=== PATIENT | male | born 1945 | race African-American/Black ===

== ENCOUNTER 2021-08-10 19:53 | Inpatient (IN) | payer MEDICARE, MEDICAID ==
[~2021-08-10] VITALS: Ht 182.9 cm; Wt 80.8 kg
[~2021-08-10 19:53] MED LIST: HYDR1TAB4 GT
[2021-08-10 21:21] LABS: BASOPHILS % 0.1 % (0.0-2.0); EOSINOPHILS % 0.3 % (0.0-5.0); HEMATOCRIT. 46.2 % (42.0-52.0); HEMOGLOBIN. 15.7 g/dL (14.0-18.0); LYMPHOCYTES % 18.8 % (20.0-50.0); MEAN CORPUSCULAR HEMOGLOBIN 33.1 pg (28.0-32.0); MEAN CORPUSCULAR VOLUME 97.7 fL (80.0-94.0); MEAN PLATELET VOLUME 8.2 fl (7.4-10.4); MONOCYTES % 11.2 % (2.0-8.0); NEUTROPHILS % 69.6 % (40.0-76.0); PLATELET 130 x1000/uL (130-400); RED BLOOD CELL COUNT 4.73 mill/uL (4.7-6.1)
[2021-08-10 21:29] LABS: CHLORIDE 109 mEq/L (98-107)
[2021-08-10 21:33] LABS: ETHANOL BLOOD < 10 mg/dL
[2021-08-10 21:44] LABS: CLARITY URINE CLEAR (CLEAR); COLOR URINE DARK YELLOW (YELLOW); KETONES URINE 2+ (NEGATIVE); LEUKOCYTE ESTERASE URINE NEGATIVE (NEGATIVE); NITRITE URINE NEGATIVE (NEGATIVE); OCCULT BLOOD URINE 1+ (NEGATIVE); PH URINE 5.5 (4.5-8.0); PROTEIN URINE TRACE (NEGATIVE); SPECIFIC GRAVITY URINE 1.059 (1.005-1.030)
[2021-08-10] MEDS ORDERED: IOHEXOL-300 100 ML BOTTLE ONE (21:49)
[2021-08-10 22:02] LABS: *AMPHETAMINES SCREEN URINE NEGATIVE (NEGATIVE); *BARBITURATES SCREEN URINE NEGATIVE (NEGATIVE); *BENZODIAZEPINES SCREEN URINE NEGATIVE (NEGATIVE); *COCAINE SCREEN URINE PRESUMTIVE POSITIVE (NEGATIVE); OPIATES URINE SCREEN NEGATIVE (NEGATIVE)
[2021-08-10 22:04] LABS: CANNABINOID URINE SCREEN NEGATIVE (NEGATIVE); METHADONE URINE SCREEN NEGATIVE (NEGATIVE); PHENCYCLIDINE URINE SCREEN NEGATIVE (NEGATIVE)
[2021-08-10] MEDS ORDERED: SODIUM CHLORIDE 0.9% 1,000 ML IV ONE (22:15)
[2021-08-10 23:51] VITALS: BP 125/84
[2021-08-11] VITALS: BP 125/84
[2021-08-11] MEDS ORDERED: ONDANSETRON HCL 4MG/2ML INJ IV PRN
[2021-08-11] MEDS ORDERED: HYDROCODONE/ACETAMINOPHEN 5/325MG TABLET PO PRN
[2021-08-11] MEDS ORDERED: ACETAMINOPHEN 325MG TABLET PO PRN
[2021-08-11] MEDS ORDERED: DOCUSATE SODIUM 100MG CAPSULE PO PRN
[2021-08-11 04:00] VITALS: BP 170/86
[2021-08-11 06:54] LABS: BASOPHILS % 0.4 % (0.0-2.0); CHLORIDE 113 mEq/L (98-107); EOSINOPHILS % 0.5 % (0.0-5.0); HEMATOCRIT. 45.7 % (42.0-52.0); LYMPHOCYTES % 21.8 % (20.0-50.0); MEAN CORPUSCULAR HEMOGLOBIN 33.4 pg (28.0-32.0); MEAN CORPUSCULAR VOLUME 95.3 fL (80.0-94.0); MEAN PLATELET VOLUME 9.2 fl (7.4-10.4); MONOCYTES % 11.6 % (2.0-8.0); NEUTROPHILS % 65.7 % (40.0-76.0); PLATELET 150 x1000/uL (130-400); RED BLOOD CELL COUNT 4.79 mill/uL (4.7-6.1)
[2021-08-11 07:00] LABS: LDL CHOLESTEROL 130 mg/dL (5-100)
[2021-08-11 07:02] LABS: HDL CHOLESTEROL 58 mg/dL (40-59)
[2021-08-11 08:00] VITALS: BP 174/84
[2021-08-11] MEDS: ASPIRIN 81MG EC TABLET PO SCH (08:50)
[2021-08-11] MEDS: AMLODIPINE 10MG TABLET PO SCH (08:50)
[2021-08-11] MEDS: ENOXAPARIN 40MG/0.4ML SYR SUBCUT SCH (09:20)
[2021-08-11] MEDS: HYDRALAZINE 20MG/ML VIAL IV PRN (09:20)
[2021-08-11] MEDS ORDERED: KETO5DRO80 RIGHTEYE (11:38)
[2021-08-11] MEDS ORDERED: BRIM.2 EACHEYE (11:38)
[2021-08-11] MEDS ORDERED: ACET250T3 PO (11:39)
[2021-08-11] MEDS ORDERED: CIPR2.5D17 RIGHTEYE (11:41)
[2021-08-11] MEDS ORDERED: TIMO5DRO32 LEFTEYE (11:42)
[2021-08-11] MEDS ORDERED: TRAM50TA3 MT (11:42)
[2021-08-11 12:00] VITALS: BP 168/81
[2021-08-11] MEDS: CLONIDINE 0.1MG TABLET PO PRN (14:47)
[2021-08-11] MEDS: DEXT 5%/0.45% NACL 1000ML 1,000 ML IV SCH (14:47)
[2021-08-11 16:07] VITALS: BP 122/77
[2021-08-11 20:00] VITALS: BP 126/82
[2021-08-12] VITALS: BP 107/83
[2021-08-12] MEDS: DEXT 5%/0.45% NACL 1000ML 1,000 ML IV SCH ×2 (02:06→16:34)
[2021-08-12 04:00] VITALS: BP 166/97
[2021-08-12 08:00] VITALS: BP 179/77
[2021-08-12] MEDS: AMLODIPINE 10MG TABLET PO SCH (08:24)
[2021-08-12] MEDS: ASPIRIN 81MG EC TABLET PO SCH (08:24)
[2021-08-12] MEDS: HYDRALAZINE 20MG/ML VIAL IV PRN (08:24)
[2021-08-12] MEDS: ENOXAPARIN 40MG/0.4ML SYR SUBCUT SCH (08:24)
[2021-08-12] MEDS: LOSARTAN POTASSIUM 50 MG TABLET PO SCH (11:07)
[2021-08-12 12:00] VITALS: BP 131/86
[2021-08-12] MEDS: BRIMONIDINE 0.2% OPHTH DROPS 5ML EACHEYE SCH ×2 (13:14→16:34)
[2021-08-12 16:00] VITALS: BP 124/73
[2021-08-12 20:00] VITALS: BP 135/77
[2021-08-12] MEDS: ATORVASTATIN CALCIUM 40MG TABLET PO SCH (21:55)
[2021-08-13] VITALS: BP 125/80
[2021-08-13 04:00] VITALS: BP 189/89
[2021-08-13] MEDS: DEXT 5%/0.45% NACL 1000ML 1,000 ML IV SCH ×2 (06:32→17:53)
[2021-08-13 07:26] LABS: BASOPHILS % 0.2 % (0.0-2.0); EOSINOPHILS % 0.5 % (0.0-5.0); HEMATOCRIT. 42.7 % (42.0-52.0); HEMOGLOBIN. 15.1 g/dL (14.0-18.0); LYMPHOCYTES % 20.4 % (20.0-50.0); MEAN CORPUSCULAR HEMOGLOBIN 33.4 pg (28.0-32.0); MEAN CORPUSCULAR VOLUME 94.6 fL (80.0-94.0); MEAN PLATELET VOLUME 9.2 fl (7.4-10.4); MONOCYTES % 12.2 % (2.0-8.0); NEUTROPHILS % 66.7 % (40.0-76.0); PLATELET 144 x1000/uL (130-400); RED BLOOD CELL COUNT 4.52 mill/uL (4.7-6.1); RED CELL DISTRIBUTION WIDTH 12.6 % (11.6-14.6)
[2021-08-13 07:37] LABS: CHLORIDE 109 mEq/L (98-107)
[2021-08-13 08:00] VITALS: BP 175/93
[2021-08-13] MEDS: ENOXAPARIN 40MG/0.4ML SYR SUBCUT SCH (10:41)
[2021-08-13] MEDS: AMLODIPINE 10MG TABLET PO SCH (10:42)
[2021-08-13] MEDS: LOSARTAN POTASSIUM 50 MG TABLET PO SCH (10:42)
[2021-08-13] MEDS: BRIMONIDINE 0.2% OPHTH DROPS 5ML EACHEYE SCH ×3 (10:42→17:53)
[2021-08-13] MEDS: ASPIRIN 81MG EC TABLET PO SCH (10:42)
[2021-08-13] MEDS ORDERED: POTASSIUM CHLORIDE INJ 40 MEQ in DEXT 5% WATER 250 ML IV SCH (11:00)
[2021-08-13 12:00] VITALS: BP 145/84
[2021-08-13 16:00] VITALS: BP 121/77
[2021-08-13 20:00] VITALS: BP 132/68
[2021-08-13] MEDS ORDERED: NALOXONE HCL 0.4MG/ML VIAL IV PRN (21:30)
[2021-08-13] MEDS: ATORVASTATIN CALCIUM 40MG TABLET PO SCH (21:32)
[2021-08-14] VITALS: BP 136/101
[2021-08-14] MEDS: CLONIDINE 0.1MG TABLET PO PRN (00:31)
[2021-08-14 04:00] VITALS: BP 151/88
[2021-08-14 06:49] LABS: BASOPHILS % 0.1 % (0.0-2.0); EOSINOPHILS % 0.7 % (0.0-5.0); MEAN CORPUSCULAR HEMOGLOBIN 32.5 pg (28.0-32.0); MEAN CORPUSCULAR VOLUME 95.7 fL (80.0-94.0); MEAN PLATELET VOLUME 9.1 fl (7.4-10.4); MONOCYTES % 12.3 % (2.0-8.0); NEUTROPHILS % 64.9 % (40.0-76.0); PLATELET 125 x1000/uL (130-400); RED BLOOD CELL COUNT 4.29 mill/uL (4.7-6.1)
[2021-08-14 06:53] LABS: CHLORIDE 108 mEq/L (98-107)
[2021-08-14 08:00] VITALS: BP 105/59
[2021-08-14] MEDS: AMLODIPINE 10MG TABLET PO SCH (09:00)
[2021-08-14] MEDS: LOSARTAN POTASSIUM 50 MG TABLET PO SCH (09:00)
[2021-08-14] MEDS: ENOXAPARIN 40MG/0.4ML SYR SUBCUT SCH (10:13)
[2021-08-14] MEDS: BRIMONIDINE 0.2% OPHTH DROPS 5ML EACHEYE SCH ×3 (10:31→18:17)
[2021-08-14] MEDS: DEXT 5%/0.45% NACL 1000ML 1,000 ML IV SCH ×2 (10:31→21:20)
[2021-08-14] MEDS: ASPIRIN 81MG EC TABLET PO SCH (10:31)
[2021-08-14 12:00] VITALS: BP 133/67
[2021-08-14] MEDS ORDERED: POTASSIUM CHLORIDE 20MEQ TABLET SR PO SCH (13:00)
[2021-08-14] MEDS ORDERED: CEFAZOLIN 1000MG PREMIX 50 ML IV SCH (13:00)
[2021-08-14 16:00] VITALS: BP 114/72
[2021-08-14 20:00] VITALS: BP 128/67
[2021-08-14] MEDS: ATORVASTATIN CALCIUM 40MG TABLET PO SCH (20:43)
[2021-08-15] VITALS: BP 123/75
[2021-08-15 04:00] VITALS: BP 162/76
[2021-08-15 07:12] LABS: PROTHROMBIN TIME 11.2 sec (9.6-11.0)
[2021-08-15 07:19] LABS: BASOPHILS % 0.2 % (0.0-2.0); EOSINOPHILS % 0.9 % (0.0-5.0); HEMATOCRIT. 40.1 % (42.0-52.0); HEMOGLOBIN. 13.7 g/dL (14.0-18.0); LYMPHOCYTES % 23.3 % (20.0-50.0); MEAN CORPUSCULAR HEMOGLOBIN 32.5 pg (28.0-32.0); MEAN CORPUSCULAR VOLUME 94.9 fL (80.0-94.0); MEAN PLATELET VOLUME 9.3 fl (7.4-10.4); MONOCYTES % 11.7 % (2.0-8.0); NEUTROPHILS % 63.9 % (40.0-76.0); PLATELET 126 x1000/uL (130-400); RED BLOOD CELL COUNT 4.23 mill/uL (4.7-6.1); RED CELL DISTRIBUTION WIDTH 12.7 % (11.6-14.6)
[2021-08-15 07:36] LABS: CHLORIDE 108 mEq/L (98-107)
[2021-08-15 08:00] VITALS: BP 165/72
[2021-08-15] MEDS: BRIMONIDINE 0.2% OPHTH DROPS 5ML EACHEYE SCH ×3 (09:00→17:58)
[2021-08-15] MEDS: ASPIRIN 81MG EC TABLET PO SCH (09:21)
[2021-08-15] MEDS: AMLODIPINE 10MG TABLET PO SCH (09:21)
[2021-08-15] MEDS: ENOXAPARIN 40MG/0.4ML SYR SUBCUT SCH (09:21)
[2021-08-15] MEDS: LOSARTAN POTASSIUM 50 MG TABLET PO SCH (09:21)
[2021-08-15] MEDS: DEXT 5%/0.45% NACL 1000ML 1,000 ML IV SCH (11:43)
[2021-08-15 12:00] VITALS: BP 141/75
[2021-08-15 16:00] VITALS: BP 144/86
[2021-08-15 20:00] VITALS: BP 125/84
[2021-08-15] MEDS: ATORVASTATIN CALCIUM 40MG TABLET PO SCH (20:40)
[2021-08-16] VITALS: BP 131/75
[2021-08-16] MEDS: DEXT 5%/0.45% NACL 1000ML 1,000 ML IV SCH ×2 (00:30→14:25)
[2021-08-16] MEDS ORDERED: *PATIENT'S OWN MEDICATION STORAGE XX SCH (01:00)
[2021-08-16 04:00] VITALS: BP 142/86
[2021-08-16 07:26] LABS: BASOPHILS % 0.3 % (0.0-2.0); EOSINOPHILS % 1.5 % (0.0-5.0); HEMOGLOBIN. 14.3 g/dL (14.0-18.0); INR 1.1; LYMPHOCYTES % 19.9 % (20.0-50.0); MEAN CORPUSCULAR HEMOGLOBIN 33.1 pg (28.0-32.0); MEAN CORPUSCULAR VOLUME 95.2 fL (80.0-94.0); MEAN PLATELET VOLUME 8.8 fl (7.4-10.4); MONOCYTES % 11.4 % (2.0-8.0); NEUTROPHILS % 66.9 % (40.0-76.0); PLATELET 128 x1000/uL (130-400); PROTHROMBIN TIME 11.3 sec (9.6-11.0); RED BLOOD CELL COUNT 4.31 mill/uL (4.7-6.1); RED CELL DISTRIBUTION WIDTH 12.6 % (11.6-14.6)
[2021-08-16 07:32] LABS: CHLORIDE 108 mEq/L (98-107)
[2021-08-16 08:00] VITALS: BP 139/81
[2021-08-16] MEDS: ENOXAPARIN 40MG/0.4ML SYR SUBCUT SCH (09:00)
[2021-08-16] MEDS: ASPIRIN 81MG EC TABLET PO SCH (09:00)
[2021-08-16] MEDS: LOSARTAN POTASSIUM 50 MG TABLET PO SCH (11:22)
[2021-08-16] MEDS: AMLODIPINE 10MG TABLET PO SCH (11:22)
[2021-08-16] MEDS: BRIMONIDINE 0.2% OPHTH DROPS 5ML EACHEYE SCH ×3 (11:23→17:40)
[2021-08-16 12:00] VITALS: BP 130/76
[2021-08-16] MEDS ORDERED: CEFAZOLIN 1000MG PREMIX 50 ML IV PRN (14:00)
[2021-08-16] MEDS ORDERED: CEFAZOLIN SODIUM 1000MG/VIAL IV SCH (14:00)
[2021-08-16] MEDS ORDERED: MIDAZOLAM HCL 5 MG/5 ML VIAL ONE (15:30)
[2021-08-16] MEDS ORDERED: FENTANYL CITRATE/PF 50MCG/ML 2ML VIAL ONE (15:30)
[2021-08-16] MEDS ORDERED: MIDAZOLAM HCL 5 MG/5 ML VIAL IV PRN (15:36)
[2021-08-16 20:00] VITALS: BP 122/79
[2021-08-16] MEDS: ATORVASTATIN CALCIUM 40MG TABLET PO SCH (20:38)
[2021-08-17] VITALS: BP 117/74
[2021-08-17] MEDS: DEXT 5%/0.45% NACL 1000ML 1,000 ML IV SCH ×2 (00:06→18:01)
[2021-08-17 04:00] VITALS: BP 110/73
[2021-08-17 08:00] VITALS: BP 130/74
[2021-08-17] MEDS: BRIMONIDINE 0.2% OPHTH DROPS 5ML EACHEYE SCH ×3 (09:00→18:00)
[2021-08-17] MEDS: ENOXAPARIN 40MG/0.4ML SYR SUBCUT SCH (09:20)
[2021-08-17] MEDS: LOSARTAN POTASSIUM 50 MG TABLET PO SCH (09:20)
[2021-08-17] MEDS: ASPIRIN 81MG EC TABLET PO SCH (09:20)
[2021-08-17] MEDS: AMLODIPINE 10MG TABLET PO SCH (09:20)
[2021-08-17 12:00] VITALS: BP 119/70
[2021-08-17 16:00] VITALS: BP 117/63
[2021-08-17] MEDS: LACTULOSE 20G/30ML UDC PO PRN (18:00)
[2021-08-17] MEDS ORDERED: HYDROMORPHONE HCL/PF 2MG/ML CPJ IV PRN (18:30)
[2021-08-17 20:00] VITALS: BP 101/44
[2021-08-17] MEDS: ATORVASTATIN CALCIUM 40MG TABLET PO SCH (20:55)
[2021-08-18] VITALS: BP 93/46
[2021-08-18 04:00] VITALS: BP 97/51
[2021-08-18] MEDS: DEXT 5%/0.45% NACL 1000ML 1,000 ML IV SCH ×2 (05:57→18:42)
[2021-08-18 08:00] VITALS: BP 126/78
[2021-08-18] MEDS: ASPIRIN 81MG EC TABLET PO SCH (09:24)
[2021-08-18] MEDS: BRIMONIDINE 0.2% OPHTH DROPS 5ML EACHEYE SCH ×3 (09:24→18:02)
[2021-08-18] MEDS: LOSARTAN POTASSIUM 50 MG TABLET PO SCH (09:24)
[2021-08-18] MEDS: AMLODIPINE 10MG TABLET PO SCH (09:24)
[2021-08-18] MEDS: ENOXAPARIN 40MG/0.4ML SYR SUBCUT SCH (09:24)
[2021-08-18 12:00] VITALS: BP 139/76
[2021-08-18 16:00] VITALS: BP 110/67
[2021-08-18 20:00] VITALS: BP 114/70
[2021-08-18] MEDS: ATORVASTATIN CALCIUM 40MG TABLET PO SCH (20:37)
[2021-08-19] VITALS: BP 112/65
[2021-08-19 04:00] VITALS: BP 116/71
[2021-08-19] MEDS: LACTULOSE 20G/30ML UDC PO PRN (05:30)
[2021-08-19 08:00] VITALS: BP 136/72
[2021-08-19] MEDS: ENOXAPARIN 40MG/0.4ML SYR SUBCUT SCH (09:13)
[2021-08-19] MEDS: AMLODIPINE 10MG TABLET PO SCH (09:14)
[2021-08-19] MEDS: LOSARTAN POTASSIUM 50 MG TABLET PO SCH (09:14)
[2021-08-19] MEDS: ASPIRIN 81MG EC TABLET PO SCH (09:14)
[2021-08-19] MEDS: DEXT 5%/0.45% NACL 1000ML 1,000 ML IV SCH ×2 (09:15→21:57)
[2021-08-19] MEDS ORDERED: NALOXONE HCL 0.4MG/ML VIAL IV PRN (10:30)
[2021-08-19] MEDS: BRIMONIDINE 0.2% OPHTH DROPS 5ML EACHEYE SCH ×3 (10:50→17:11)
[2021-08-19 12:00] VITALS: BP 138/63
[2021-08-19 12:27] LABS: BASOPHILS % 0.1 % (0.0-2.0); EOSINOPHILS % 0.7 % (0.0-5.0); HEMATOCRIT. 35.9 % (42.0-52.0); HEMOGLOBIN. 12.1 g/dL (14.0-18.0); LYMPHOCYTES % 10.9 % (20.0-50.0); MEAN CORPUSCULAR HEMOGLOBIN 32.1 pg (28.0-32.0); MEAN CORPUSCULAR VOLUME 95.6 fL (80.0-94.0); MEAN PLATELET VOLUME 8.7 fl (7.4-10.4); MONOCYTES % 11.6 % (2.0-8.0); NEUTROPHILS % 76.7 % (40.0-76.0); PLATELET 152 x1000/uL (130-400); RED BLOOD CELL COUNT 3.76 mill/uL (4.7-6.1); RED CELL DISTRIBUTION WIDTH 12.5 % (11.6-14.6)
[2021-08-19 12:33] LABS: CHLORIDE 106 mEq/L (98-107)
[2021-08-19 16:00] VITALS: BP 128/62
[2021-08-19] MEDS: POTASSIUM CHLORIDE 20MEQ/PACKET GT SCH (18:29)
[2021-08-19 20:00] VITALS: BP 106/64
[2021-08-19] MEDS: ATORVASTATIN CALCIUM 40MG TABLET PO SCH (21:09)
[2021-08-20] VITALS: BP 117/53
[2021-08-20 04:00] VITALS: BP 107/56
[2021-08-20 08:00] VITALS: BP 121/73
[2021-08-20] MEDS: ENOXAPARIN 40MG/0.4ML SYR SUBCUT SCH (09:29)
[2021-08-20] MEDS: POTASSIUM CHLORIDE 20MEQ/PACKET GT SCH (09:29)
[2021-08-20] MEDS: AMLODIPINE 10MG TABLET PO SCH (09:30)
[2021-08-20] MEDS: LOSARTAN POTASSIUM 50 MG TABLET PO SCH (09:30)
[2021-08-20] MEDS: ASPIRIN 81MG EC TABLET PO SCH (09:30)
[2021-08-20] MEDS: BRIMONIDINE 0.2% OPHTH DROPS 5ML EACHEYE SCH ×3 (09:30→17:11)
[2021-08-20] MEDS: DEXT 5%/0.45% NACL 1000ML 1,000 ML IV SCH ×2 (09:46→23:26)
[2021-08-20 12:00] VITALS: BP 125/77
[2021-08-20 16:00] VITALS: BP 112/71
[2021-08-20 20:00] VITALS: BP 118/70
[2021-08-20] MEDS: ATORVASTATIN CALCIUM 40MG TABLET PO SCH (20:28)
[2021-08-21] VITALS: BP 133/80
[2021-08-21 04:00] VITALS: BP 141/86
[2021-08-21 08:00] VITALS: BP 132/70
[2021-08-21] MEDS: ASPIRIN 81MG EC TABLET PO SCH (10:18)
[2021-08-21] MEDS: POTASSIUM CHLORIDE 20MEQ/PACKET GT SCH (10:18)
[2021-08-21] MEDS: ENOXAPARIN 40MG/0.4ML SYR SUBCUT SCH (10:18)
[2021-08-21] MEDS: BRIMONIDINE 0.2% OPHTH DROPS 5ML EACHEYE SCH ×3 (10:18→17:41)
[2021-08-21] MEDS: LOSARTAN POTASSIUM 50 MG TABLET PO SCH (10:20)
[2021-08-21] MEDS: AMLODIPINE 10MG TABLET PO SCH (10:21)
[2021-08-21 12:00] VITALS: BP 101/59
[2021-08-21] MEDS: DEXT 5%/0.45% NACL 1000ML 1,000 ML IV SCH (13:05)
[2021-08-21 16:00] VITALS: BP 92/56
[2021-08-21 20:00] VITALS: BP 101/56
[2021-08-21] MEDS: ATORVASTATIN CALCIUM 40MG TABLET PO SCH (21:35)
[2021-08-22] VITALS: BP 115/72
[2021-08-22] MEDS: DEXT 5%/0.45% NACL 1000ML 1,000 ML IV SCH ×2 (02:26→16:57)
[2021-08-22 04:00] VITALS: BP 115/67
[2021-08-22 08:00] VITALS: BP 135/80
[2021-08-22] MEDS: POTASSIUM CHLORIDE 20MEQ/PACKET GT SCH (10:33)
[2021-08-22] MEDS: ENOXAPARIN 40MG/0.4ML SYR SUBCUT SCH (10:33)
[2021-08-22] MEDS: ASPIRIN 81MG EC TABLET PO SCH (10:33)
[2021-08-22] MEDS: BRIMONIDINE 0.2% OPHTH DROPS 5ML EACHEYE SCH ×3 (10:34→16:57)
[2021-08-22] MEDS: LOSARTAN POTASSIUM 50 MG TABLET PO SCH (10:34)
[2021-08-22] MEDS: AMLODIPINE 10MG TABLET PO SCH (10:35)
[2021-08-22 12:00] VITALS: BP 98/59
[2021-08-22 16:00] VITALS: BP 97/55
[2021-08-22 20:00] VITALS: BP 109/57
[2021-08-22] MEDS: ATORVASTATIN CALCIUM 40MG TABLET PO SCH (20:36)
[2021-08-23] VITALS: BP 108/64
[2021-08-23 04:00] VITALS: BP 126/65
[2021-08-23] MEDS: DEXT 5%/0.45% NACL 1000ML 1,000 ML IV SCH ×2 (05:11→17:54)
[2021-08-23] MEDS: BRIMONIDINE 0.2% OPHTH DROPS 5ML EACHEYE SCH ×3 (08:49→16:20)
[2021-08-23] MEDS: POTASSIUM CHLORIDE 20MEQ/PACKET GT SCH (08:49)
[2021-08-23] MEDS: ASPIRIN 81MG EC TABLET PO SCH (08:50)
[2021-08-23] MEDS: ENOXAPARIN 40MG/0.4ML SYR SUBCUT SCH (08:50)
[2021-08-23] MEDS: LOSARTAN POTASSIUM 50 MG TABLET PO SCH (08:51)
[2021-08-23] MEDS: AMLODIPINE 10MG TABLET PO SCH (08:51)
[2021-08-23 12:00] VITALS: BP_SYST 103; BP_SYST 99; BP_DIAS 55; BP_DIAS 60
[2021-08-23 16:00] VITALS: BP 103/60
[2021-08-23 20:00] VITALS: BP 112/68
[2021-08-23] MEDS: ATORVASTATIN CALCIUM 40MG TABLET PO SCH (20:44)
[2021-08-24] VITALS: BP 112/63
[2021-08-24 04:00] VITALS: BP 116/66
[2021-08-24] MEDS: DEXT 5%/0.45% NACL 1000ML 1,000 ML IV SCH ×2 (07:29→20:42)
[2021-08-24 08:00] VITALS: BP 124/76
[2021-08-24] MEDS: POTASSIUM CHLORIDE 20MEQ/PACKET GT SCH (09:17)
[2021-08-24] MEDS: LOSARTAN POTASSIUM 50 MG TABLET PO SCH (09:17)
[2021-08-24] MEDS: ASPIRIN 81MG EC TABLET PO SCH (09:18)
[2021-08-24] MEDS: AMLODIPINE 10MG TABLET PO SCH (09:18)
[2021-08-24] MEDS: ENOXAPARIN 40MG/0.4ML SYR SUBCUT SCH (09:24)
[2021-08-24 12:00] VITALS: BP 140/86
[2021-08-24 16:00] VITALS: BP 108/71
[2021-08-24 20:00] VITALS: BP 115/73
[2021-08-24] MEDS: ATORVASTATIN CALCIUM 40MG TABLET PO SCH (20:42)
[2021-08-25] VITALS (7 sets, daily range): BP systolic 92–126; BP diastolic 53–76
[2021-08-25 07:08] LABS: BASOPHILS % 0.2 % (0.0-2.0); EOSINOPHILS % 1.1 % (0.0-5.0); HEMATOCRIT. 36.2 % (42.0-52.0); HEMOGLOBIN. 12.8 g/dL (14.0-18.0); LYMPHOCYTES % 14.5 % (20.0-50.0); MEAN CORPUSCULAR HEMOGLOBIN 33.3 pg (28.0-32.0); MEAN CORPUSCULAR VOLUME 94.6 fL (80.0-94.0); MEAN PLATELET VOLUME 8.8 fl (7.4-10.4); MONOCYTES % 9.8 % (2.0-8.0); NEUTROPHILS % 74.4 % (40.0-76.0); PLATELET 224 x1000/uL (130-400); RED BLOOD CELL COUNT 3.83 mill/uL (4.7-6.1); RED CELL DISTRIBUTION WIDTH 12.3 % (11.6-14.6)
[2021-08-25 07:14] LABS: CHLORIDE 104 mEq/L (98-107)
[2021-08-25] MEDS: BRIMONIDINE 0.2% OPHTH DROPS 5ML EACHEYE SCH ×4 (09:50→18:22)
[2021-08-25] MEDS: ENOXAPARIN 40MG/0.4ML SYR SUBCUT SCH (09:50)
[2021-08-25] MEDS: LOSARTAN POTASSIUM 50 MG TABLET PO SCH (09:51)
[2021-08-25] MEDS: AMLODIPINE 10MG TABLET PO SCH (09:51)
[2021-08-25] MEDS: POTASSIUM CHLORIDE 20MEQ/PACKET GT SCH (09:51)
[2021-08-25] MEDS: ASPIRIN 81MG EC TABLET PO SCH (09:51)
[2021-08-25] MEDS: DEXT 5%/0.45% NACL 1000ML 1,000 ML IV SCH (09:52)
[2021-08-25] MEDS ORDERED: SODIUM CHLORIDE 0.9% 500 ML IV SCH ×2 (19:43→20:45)
[2021-08-25] MEDS: ATORVASTATIN CALCIUM 40MG TABLET PO SCH (21:25)
== END 2021-08-25 22:18 | DRG 64 ==
LOC: ER 19:53 → 7EST 22:09 → EDBEDREQTM 22:12 → EDBEDREQ 22:12 → EDBEDREQSVC 22:12 → ENRESERV 22:45
PROVIDERS: ADMIT Hospitalist; ATTEND Hospitalist
PROC: 0DH68UZ Insertion of Feeding Device into Stomach, Via Natural or Artificial Opening Endoscopic (ICD-10-PCS; 2021-08-16)
PROC: 4A10X4Z Monitoring of Central Nervous Electrical Activity, External Approach (ICD-10-PCS; principal; 2021-08-17)
DX: I63.512 Cerebral infarction due to unspecified occlusion or stenosis of left middle cerebral artery (principal); G93.6 Cerebral edema; G93.40 Encephalopathy, unspecified; G81.91 Hemiplegia, unspecified affecting right dominant side; E44.1 Mild protein-calorie malnutrition; R32 Unspecified urinary incontinence; I10 Essential (primary) hypertension; E78.5 Hyperlipidemia, unspecified; R13.12 Dysphagia, oropharyngeal phase; D53.9 Nutritional anemia, unspecified; R47.01 Aphasia; K44.9 Diaphragmatic hernia without obstruction or gangrene; K29.60 Other gastritis without bleeding; R74.01 Elevation of levels of liver transaminase levels; Z20.822 Contact with and (suspected) exposure to COVID-19; J43.2 Centrilobular emphysema; F14.10 Cocaine abuse, uncomplicated; R29.716 NIHSS score 16; Z79.2 Long term (current) use of antibiotics; Z79.899 Other long term (current) drug therapy; Z68.24 Body mass index [BMI] 24.0-24.9, adult; Z86.73 Personal history of transient ischemic attack (TIA), and cerebral infarction without residual deficits
CPT/HCPCS: 36415; 70496; 70498; 70551; 71045; 80048; 80053; 80061; 80305; 80320; 81003; 82962; 83605; 83735; 84484; 85025; 87426; 92610; 93005; 93970; 95816; 97110; 97162; 97166; 97530; 99285; J0360; J0690; J1170; J1650; J2250; J2405; J3010; J3480; J7030; J7040; J7060; Q9967; G0480